=== PATIENT | male | born 1960 | race African-American/Black ===

== ENCOUNTER 2019-01-26 11:48 | Inpatient (IN) | payer MEDICAID ==
[~2019-01-26] VITALS: Ht 180.3 cm; Wt 108.0 kg
[2019-01-26] MEDS ORDERED: LABETALOL 5MG/ML, 20ML IVPush ONE ×2 (12:04→14:30)
[2019-01-26 12:36] LABS: ALANINE AMINOTRANSFERASE 40 U/L (12-78); ALBUMIN 3.9 g/dL (3.4-5.0); CALCIUM 8.9 mg/dL (8.5-10.1); CHLORIDE 105 mmol/L (98-107); CREATININE 1.35 mg/dL (0.7-1.3)
[2019-01-26 12:38] LABS: MEAN CORPUSCULAR HEMOGLOBIN 27.7 pg (27.5-34.5); MEAN CORPUSCULAR HGB CONC 32.2 g/dL (33.2-36.2); MEAN CORPUSCULAR VOLUME 85.8 fL (81-97); MEAN PLATELET VOLUME 8.2 fL (7.4-10.4); PLATELET COUNT 205 x10^3/uL (130-400); RED BLOOD COUNT 6.27 x10^6/uL (4.38-5.82); RED CELL DISTRIBUTION WIDTH 14.2 % (9.4-14.8)
[2019-01-26] MEDS ORDERED: LABETALOL 5MG/ML, 20ML ONE (12:38)
[2019-01-26 12:40] LABS: ALKALINE PHOSPHATASE 70 U/L (45-117); TOTAL PROTEIN 7.7 g/dL (6.4-8.2); TROPONIN I 0.087 ng/mL (0.000-0.045)
[2019-01-26 12:54] LABS: ANION GAP 3 mmol/L (5-15)
[2019-01-26 13:01] LABS: BASOPHILS # (AUTO) 0.04 x10^3/uL (0-0.1); BASOPHILS % (AUTO) 1 % (0-1); EOSINOPHILS # (AUTO) 0.16 x10^3/uL (0-0.4); EOSINOPHILS % (AUTO) 5 % (1-7); LYMPHOCYTES # (AUTO) 1.22 x10^3/uL (1-3.4); LYMPHOCYTES % (AUTO) 37 % (22-44); MD SCAN; MONOCYTES # (AUTO) 0.35 x10^3/uL (0.2-0.8); MONOCYTES % (AUTO) 11 % (2-9); NEUTROPHILS # (AUTO) 1.52 x10^3/uL (1.8-6.8); NEUTROPHILS % (AUTO) 46 % (42-75)
[2019-01-26] MEDS ORDERED: FLUT1DIS5 IH (13:03)
[2019-01-26] MEDS ORDERED: LISI-170 PO (13:04)
[2019-01-26] MEDS ORDERED: CARV25TA12 PO (13:05)
[2019-01-26] MEDS ORDERED: POTA10TA31 PO (13:05)
[2019-01-26] MEDS ORDERED: AMLO10TA8 PO (13:06)
[2019-01-26] MEDS ORDERED: ALBU6.7H8 INH (13:07)
--- NOTE | 2019-01-26 13:38 | NUR ---
LUNCH BREAK NOTE: DR. ALAMO AT BEDSIDE FOR RECHECK. PT TO BE ADMITTED FOR POSITIVE TROP AND CHEST PAIN. PT DENIES CP NOW.
--- NOTE | 2019-01-26 14:23 | NUR ---
BLOOD PRESSURE ELEVATED AGAIN TO 188/122. DR. ALAMO NOTIFIED. ANOTHER 5MG LABETALOL ORDERED AND GIVEN. SBAR HAND-OFF REPORT GIVEN TO ZACHERY FLORENTINO ON FLOOR. DELANO CRESPO, ADMITTING PROVIDER, AT BEDSIDE.
[2019-01-26] MEDS ORDERED: SODIUM CHLORIDE 0.9% 1,000 ML IV SCH (14:34)
[2019-01-26] MEDS ORDERED: ONDANSETRON 2MG/ML, 2ML IVPush PRN (15:00)
[2019-01-26] MEDS ORDERED: BISACODYL 10 MG SUPP PR PRN (15:00)
[2019-01-26] MEDS ORDERED: DOCUSATE 100 MG CAPSULE PO PRN (15:00)
[2019-01-26] MEDS ORDERED: POTASSIUM CHLORIDE 20 MEQ TAB.ER.PRT PO ONE (15:00)
[2019-01-26] MEDS ORDERED: ACETAMINOPHEN 325 MG TABLET PO PRN (15:00)
[2019-01-26] MEDS ORDERED: POLYETHYLENE GLYCOL 17 GM PACKET PO PRN (15:00)
--- NOTE | 2019-01-26 15:15 | NUR ---
PT TO HOSPITAL ROOM AT THIS TIME.
[2019-01-26 15:35] LABS: TROPONIN I 0.083 ng/mL (0.000-0.045)
[2019-01-26 15:53] VITALS: BP 217/130
[2019-01-26] MEDS: LISINOPRIL 20 MG TABLET PO SCH (15:54)
[2019-01-26] MEDS: AMLODIPINE 10 MG TAB PO SCH (15:55)
[2019-01-26] MEDS: ENOXAPARIN 30 MG/0.3 ML SQ SCH (15:55)
[2019-01-26] MEDS: hydrALAzine 20 MG/ML, 1ML IVPush PRN (16:00)
[2019-01-26 16:50] VITALS: BP 199/112
[2019-01-26] MEDS: CARVEDILOL 25 MG TABLET PO SCH (17:01)
[2019-01-26 19:50] VITALS: BP 173/99
[2019-01-26] MEDS ORDERED: CARVEDILOL 25 MG TABLET PO SCH (21:00)
[2019-01-26 21:13] VITALS: BP 153/95
[2019-01-27 01:11] VITALS: BP 154/98
[2019-01-27] MEDS: ENOXAPARIN 30 MG/0.3 ML SQ SCH ×2 (04:58→17:00)
[2019-01-27] MEDS: CARVEDILOL 25 MG TABLET PO SCH ×2 (04:58→17:00)
[2019-01-27 05:11] LABS: ALBUMIN 3.7 g/dL (3.4-5.0); ANION GAP 3 mmol/L (5-15); CALCIUM 8.9 mg/dL (8.5-10.1); CHLORIDE 107 mmol/L (98-107)
[2019-01-27 05:13] LABS: MEAN CORPUSCULAR HEMOGLOBIN 27.9 pg (27.5-34.5); MEAN CORPUSCULAR HGB CONC 32.7 g/dL (33.2-36.2); MEAN CORPUSCULAR VOLUME 85.4 fL (81-97); MEAN PLATELET VOLUME 7.9 fL (7.4-10.4); PLATELET COUNT 196 x10^3/uL (130-400); RED BLOOD COUNT 5.95 x10^6/uL (4.38-5.82); RED CELL DISTRIBUTION WIDTH 14.6 % (9.4-14.8)
[2019-01-27 05:21] LABS: ALANINE AMINOTRANSFERASE 35 U/L (12-78); ALKALINE PHOSPHATASE 61 U/L (45-117); BILIRUBIN,TOTAL 0.9 mg/dL (0.2-1.0); CHOL/HDL RATIO 3.1; CHOLESTEROL, TOTAL 118 mg/dL (140-239); CREATININE 1.15 mg/dL (0.7-1.3); HDL CHOL % 32 % (26-37); HDL CHOLESTEROL (DIRECT) 38 mg/dL (40-60); LDL CHOLESTEROL,CALCULATED 59 mg/dL (54-169); LDL/HDL RATIO 1.6 (0.5-3.0); TRIGLYCERIDES 103 mg/dL (50-200); VLDL CHOLESTEROL 21 mg/dL (0-25)
[2019-01-27 05:42] LABS: BASOPHILS # (AUTO) 0.03 x10^3/uL (0-0.1); BASOPHILS % (AUTO) 1 % (0-1); EOSINOPHILS # (AUTO) 0.17 x10^3/uL (0-0.4); EOSINOPHILS % (AUTO) 6 % (1-7); LYMPHOCYTES # (AUTO) 1.02 x10^3/uL (1-3.4); LYMPHOCYTES % (AUTO) 36 % (22-44); MD SCAN; MONOCYTES # (AUTO) 0.36 x10^3/uL (0.2-0.8); MONOCYTES % (AUTO) 13 % (2-9); NEUTROPHILS # (AUTO) 1.27 x10^3/uL (1.8-6.8); NEUTROPHILS % (AUTO) 45 % (42-75)
[2019-01-27 07:04] VITALS: BP 171/121
[2019-01-27] MEDS ORDERED: ENALAPRILAT 1.25 MG/ML, 1ML ONE (07:12)
[2019-01-27] MEDS: ENALAPRILAT 1.25 MG/ML, 2ML IVPush PRN (07:14)
[2019-01-27] MEDS ORDERED: REGADENOSON 0.4 MG/5 ML SYRINGE ONE (08:29)
[2019-01-27] MEDS ORDERED: POTASSIUM CHLORIDE 10% 40 MEQ/30 ML UDC PO ONE (08:30)
[2019-01-27 09:36] LABS: TROPONIN I 0.097 ng/mL (0.000-0.045)
[2019-01-27] MEDS: AMLODIPINE 10 MG TAB PO SCH (11:57)
[2019-01-27] MEDS: LISINOPRIL 20 MG TABLET PO SCH ×2 (12:00→21:01)
[2019-01-27 12:02] VITALS: BP 195/124
[2019-01-27 13:04] VITALS: BP 183/108
[2019-01-27] MEDS: hydrALAzine 20 MG/ML, 1ML IVPush PRN (13:17)
[2019-01-27] MEDS ORDERED: SODIUM CHLORIDE 0.9% 1,000 ML IV SCH (14:34)
[2019-01-27 18:44] VITALS: BP 186/94
[2019-01-27 21:56] LABS: MICROSCOPIC INDICATED
[2019-01-27 22:08] LABS: CULTURE INDICATED? NO
[2019-01-27 22:09] VITALS: BP 157/88
[2019-01-28 01:30] VITALS: BP 153/90
[2019-01-28 05:43] LABS: ANION GAP 3 mmol/L (5-15); CALCIUM 9.1 mg/dL (8.5-10.1); CHLORIDE 108 mmol/L (98-107); CREATININE 1.12 mg/dL (0.7-1.3)
[2019-01-28 05:51] LABS: MEAN CORPUSCULAR HEMOGLOBIN 28.1 pg (27.5-34.5); MEAN CORPUSCULAR HGB CONC 32.6 g/dL (33.2-36.2); MEAN CORPUSCULAR VOLUME 86.2 fL (81-97); MEAN PLATELET VOLUME 8.1 fL (7.4-10.4); PLATELET COUNT 186 x10^3/uL (130-400); RED BLOOD COUNT 6.03 x10^6/uL (4.38-5.82); RED CELL DISTRIBUTION WIDTH 14.8 % (9.4-14.8)
[2019-01-28] MEDS: ENOXAPARIN 30 MG/0.3 ML SQ SCH ×2 (06:16→17:17)
[2019-01-28 06:17] LABS: BASOPHILS # (AUTO) 0.03 x10^3/uL (0-0.1); BASOPHILS % (AUTO) 1 % (0-1); EOSINOPHILS # (AUTO) 0.16 x10^3/uL (0-0.4); EOSINOPHILS % (AUTO) 6 % (1-7); LYMPHOCYTES # (AUTO) 1.02 x10^3/uL (1-3.4); LYMPHOCYTES % (AUTO) 38 % (22-44); MD SCAN; MONOCYTES # (AUTO) 0.36 x10^3/uL (0.2-0.8); MONOCYTES % (AUTO) 14 % (2-9); NEUTROPHILS # (AUTO) 1.09 x10^3/uL (1.8-6.8); NEUTROPHILS % (AUTO) 41 % (42-75)
[2019-01-28] MEDS: CARVEDILOL 25 MG TABLET PO SCH ×2 (06:17→17:17)
[2019-01-28 06:40] VITALS: BP 189/113
[2019-01-28] MEDS ORDERED: POTASSIUM CHLORIDE 20 MEQ TAB.ER.PRT PO ONE (07:00)
[2019-01-28] MEDS: LISINOPRIL 20 MG TABLET PO SCH ×2 (08:45→21:07)
[2019-01-28] MEDS: AMLODIPINE 10 MG TAB PO SCH (08:45)
[2019-01-28 12:10] VITALS: BP 181/119
[2019-01-28] MEDS: CHLORTHALIDONE 25 MG TABLET PO SCH (12:13)
[2019-01-28] MEDS: POTASSIUM CHLORIDE 20 MEQ PACKET PO SCH (17:21)
[2019-01-28 20:18] VITALS: BP 156/91
[2019-01-29] VITALS (7 sets, daily range): BP systolic 147–171; BP diastolic 94–115
[2019-01-29] MEDS: CARVEDILOL 25 MG TABLET PO SCH ×2 (05:04→17:06)
[2019-01-29] MEDS: ENOXAPARIN 30 MG/0.3 ML SQ SCH ×2 (05:04→17:05)
[2019-01-29 05:43] LABS: ANION GAP 4 mmol/L (5-15); CALCIUM 9.8 mg/dL (8.5-10.1); CHLORIDE 104 mmol/L (98-107)
[2019-01-29 05:44] LABS: CREATININE 1.24 mg/dL (0.7-1.3)
[2019-01-29] MEDS: CHLORTHALIDONE 25 MG TABLET PO SCH (08:40)
[2019-01-29] MEDS: LISINOPRIL 20 MG TABLET PO SCH ×2 (08:40→20:33)
[2019-01-29] MEDS: AMLODIPINE 10 MG TAB PO SCH (08:40)
[2019-01-29] MEDS: POTASSIUM CHLORIDE 20 MEQ PACKET PO SCH (08:40)
[2019-01-29] MEDS: hydrALAzine 20 MG/ML, 1ML IVPush PRN (10:16)
[2019-01-29] MEDS ORDERED: ENALAPRILAT 1.25 MG/ML, 1ML ONE (13:31)
[2019-01-29] MEDS: ENALAPRILAT 1.25 MG/ML, 2ML IVPush PRN (13:36)
[2019-01-30 01:11] VITALS: BP 140/88
[2019-01-30] MEDS: ENOXAPARIN 30 MG/0.3 ML SQ SCH ×2 (04:00→05:33)
[2019-01-30] MEDS: CARVEDILOL 25 MG TABLET PO SCH ×2 (05:33→17:17)
[2019-01-30 06:40] VITALS: BP 154/92
[2019-01-30 08:37] LABS: ANION GAP 5 mmol/L (5-15); CALCIUM 9.4 mg/dL (8.5-10.1); CHLORIDE 104 mmol/L (98-107)
[2019-01-30] MEDS ORDERED: POTASSIUM CHLORIDE 20 MEQ PACKET PO SCH (09:00)
[2019-01-30] MEDS: CHLORTHALIDONE 25 MG TABLET PO SCH (09:23)
[2019-01-30] MEDS: AMLODIPINE 10 MG TAB PO SCH (09:24)
[2019-01-30] MEDS: LISINOPRIL 20 MG TABLET PO SCH (09:24)
[2019-01-30] MEDS ORDERED: POTASSIUM CHLORIDE 20 MEQ TAB.ER.PRT PO SCH (09:30)
[2019-01-30] MEDS ORDERED: CLON0.1T22 PO (11:08)
[2019-01-30] MEDS ORDERED: CARV25TA12 PO (11:08)
[2019-01-30] MEDS ORDERED: LISI-170 PO (11:08)
[2019-01-30] MEDS ORDERED: AMLO10TA8 PO (11:08)
[2019-01-30] MEDS ORDERED: POTA20TA6 PO (11:08)
[2019-01-30 12:31] VITALS: BP 157/99
[2019-01-30 18:44] VITALS: BP 155/81
== END 2019-01-30 18:45 | disposition home or self-care (01) | DRG 199 ==
LOC: ED 12:25 → EDIP 13:41 → 5SO 15:17
PROVIDERS: ADMIT Internal Medicine; ATTEND Internal Medicine
DX: I16.0 Hypertensive urgency (principal); N17.0 Acute kidney failure with tubular necrosis; E11.9 Type 2 diabetes mellitus without complications; I42.9 Cardiomyopathy, unspecified; E87.6 Hypokalemia; Z88.6 Allergy status to analgesic agent; Z88.3 Allergy status to other anti-infective agents; Z88.2 Allergy status to sulfonamides; D70.9 Neutropenia, unspecified; I11.9 Hypertensive heart disease without heart failure; I25.10 Atherosclerotic heart disease of native coronary artery without angina pectoris; I25.2 Old myocardial infarction; I43 Cardiomyopathy in diseases classified elsewhere; Z91.14 Patient's other noncompliance with medication regimen
CPT/HCPCS: 36415; 71045; 78452; 80048; 80053; 80061; 81001; 83735; 83880; 84100; 84443; 84484; 85025; 93005; 93017; 93306; 93975; 96374; 96376; G0378; J1650; J2785; A9502; J0360; J7030